=== PATIENT | female | born 1980 ===

== ENCOUNTER 2019-01-28 07:45 | Inpatient (IN) | payer OTHER ==
[~2019-01-28] VITALS: Ht 170.2 cm; Wt 65.8 kg
== END 2019-02-04 12:06 | disposition home or self-care (01) | DRG 743 ==
LOC: EDSTATUS 07:45 → ADM 07:45 → OB/GYN 02-02 06:12 → O/R 02-02 06:12 → SURH 02-02 07:45 → OB/GYN 02-02 13:32
PROVIDERS: ADMIT Obstetrics & Gynecology
PROC: 0UB10ZZ Excision of Left Ovary, Open Approach (ICD-10-PCS; principal; 2019-02-02 10:45)
DX: D27.1 Benign neoplasm of left ovary (principal)

== ENCOUNTER 2024-08-14 11:15 | Day surgery (SDC) | payer OTHER ==
[2024-08-13 10:31] LABS: BASO % 0.5 % (0.1-1.2); EOS # 0.19 (0.04-0.54); EOS % 2.2 % (0.7-7.0); HEMATOCRIT 39.8 % (34.1-44.9); HEMOGLOBIN 13.3 g/dL (11.2-15.7); LYMPH # 1.86 (1.18-3.74); LYMPH % 21.9 % (19.3-53.1); MEAN CORPUSCULAR HEMOGLOBIN 30.6 pg (25.6-32.2); MONO # 0.59 (0.24-0.82); NEUT # 5.77 (1.56-6.13); PLATELET COUNT 282 K/uL (163-369); RED BLOOD COUNT 4.35 M/uL (3.93-5.22); RED CELL DISTRIBUTION WIDTH 12.8 % (11.6-14.4)
[2024-08-13 11:01] LABS: INR 0.95; PARTIAL THROMBOPLASTIN TIME 25.1 SECONDS (22.0-34.0); PROTHROMBIN TIME 10.4 SECONDS (9.0-11.5)
[2024-08-14] MEDS ORDERED: POVIDONE-IODINE 118 ML BOTT TOP ONE (16:34)
[2024-08-14] MEDS ORDERED: CEFOXITIN SODIUM 2,000 MG VIAL IV ONE (17:25)
== END 2024-08-14 22:25 | disposition home or self-care (01) ==
LOC: CIR.AMB 11:15
PROVIDERS: ATTEND Obstetrics & Gynecology Maternal & Fetal Medicine
DX: O02.1 Missed abortion (principal)